=== PATIENT | male | born 1950 | race Caucasian/White ===

== ENCOUNTER 2018-07-19 20:59 | Observation (INO) | payer MEDICARE ==
[~2018-07-19] VITALS: Ht 172.7 cm; Wt 88.0 kg
[~2018-07-19 20:59] MED LIST: LISINOPRIL5 MG PO; NITROGLYCERIN0.4 MG SUBLING; TOPROL XL50 MG PO
[2018-07-19 21:03] VITALS: BP 170/79
[2018-07-19] MEDS ORDERED: FLOMAX0.4 MG PO (21:14)
[2018-07-19] MEDS ORDERED: SIMVASTATIN40 MG PO (21:14)
[2018-07-19] MEDS ORDERED: METFORMIN HCL500 MG PO (21:14)
[2018-07-19] MEDS ORDERED: ASPIR 8181 M1 PO (21:15)
[2018-07-19 21:38] LABS: HEMATOCRIT 44.4 % (42.0-52.0); HEMOGLOBIN 15.2 gm/dL (14.0-18.0); MCH 30.6 pg (26.0-34.0); MCHC 34.3 g/dL (28.0-37.0); MCV 89.1 fL (80.0-100.0); MPV 9.7 fl. (7.2-11.1); NUCLEATED RBCS 0 /100WBC; PLATELET COUNT* 156 thou/uL (150-400); RBC 4.98 mil/uL (4.50-6.00); RDW-CV 13.1 % (10.5-14.5); WBC 12.8 thou/uL (4.0-11.0)
[2018-07-19 21:43] LABS: PROTIME 10.7 Seconds (9.20-11.50)
[2018-07-19 21:49] LABS: ANION GAP 12 mmol/L (7-16); BUN 21 mg/dL (7-18); CALCIUM 9.4 mg/dL (8.5-10.1); CHLORIDE 101 mmol/L (98-107); CO2 27 mmol/L (21-32); CREATININE 1.3 mg/dL (0.6-1.3); GLUCOSE 275 mg/dL (70-99); POTASSIUM 4.4 mmol/L (3.5-5.1); SODIUM 140 mmol/L (136-145); TROPONIN-I LEVEL <0.06 ng/mL (<0.06)
[2018-07-19 21:51] LABS: ALBUMIN 4.1 g/dL (3.4-5.0); ALKALINE PHOSPHATASE 72 U/L (46-116); LIPASE 218 U/L (73-393); NT-PRO BRAIN NAT PEPTIDE 99 pg/mL (<300); SGOT 11 U/L (15-37); SGPT 18 U/L (30-65); TOTAL BILIRUBIN 0.7 mg/dL (<0.1-1.0)
[2018-07-19 22:00] LABS: ABSOLUTE LYMPHOCYTES 0.4 thou/uL (0.8-5.3); ABSOLUTE MONOCYTES 0.5 thou/uL (0.0-1.2); ABSOLUTE NEUTROPHILS 11.9 thou/uL (1.6-8.1); PLATELET ESTIMATE ADEQUATE
[2018-07-19 23:16] LABS: URINE BILIRUBIN NEGATIVE (Negative); URINE BLOOD NEGATIVE (Negative); URINE CLARITY CLEAR; URINE COLOR YELLOW; URINE GLUCOSE-RANDOM 2+ (Negative); URINE KETONES 1+ (Negative); URINE LEUKOCYTES-REFLEX NEGATIVE (Negative); URINE NITRITE-REFLEX NEGATIVE (Negative); URINE PROTEIN NEGATIVE (Negative); URINE SPECIFIC GRAVITY 1.015 (1.005-1.030); URINE UROBILINOGEN 0.2 E.U./dl (0.2-1.0)
[2018-07-20 00:20] VITALS: BP 151/70
[2018-07-20 04:18] VITALS: BP 140/67
[2018-07-20 08:00] VITALS: BP 102/45
[2018-07-20] MEDS ORDERED: PROTONIX40 M1 PO (11:42)
[2018-07-20 12:11] VITALS: BP 120/58
--- NOTE | 2018-07-20 13:26 | EKG ---
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 07/20/18 1326 04 04 Fantasma Lewis MD, FACC /EPI
--- NOTE | 2018-07-20 13:27 | EKG ---
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
[2018-07-20 16:00] VITALS: BP 140/65
--- NOTE | 2018-07-20 16:32 | CARDNUC ---
[place] [address] CARDIAC NUCLEAR IMAGING REPORT Name: ARDEN MARTINEZ [address] [id number] Admission: 07/19/18 Attend Phys: Arden Larsen Discharge: Date of : 50 Date of Service: 07/20/18 1631 Report #: [id number] THIS REPORT FOR: //name// APPROVED REPORT Study performed: 07/20/2018 14:36:38 Exam: Nuclear Stress Test Indication: chest pain Patient Location: In-Patient Room #: 213 Stress Tech: Perri Gonzales Stress Nurse: Fani Mackenzie RN NM Tech:LAURA Rankin Ht: 5 ft 8 in Wt: 190 lbs BSA: 2.00 m2 BMI: 28.88 Medical History Medical History: CP Medications: metoprolol, lisinopril, ASA, simvastatin Allergies: penicillin Cardiac Risk Factors: Age, HTN, DM Previous Cardiac Procedures: PCI, CABG Meds Held (24 hrs): metoprolol Stress Test Details Stress Test: Pharmacologic stress testing performed using 0.4 mg of regadenoson per 5 mL given IV over 10 seconds. HR Resting HR: 83 bpm Max Heart Rate (APMHR): 152 bpm Max HR Achieved: 102 bpm Target HR (85% APMHR): 129 bpm % of APMHR: 67 Recovery HR: 92 bpm BP Resting BP: 127/60 mmHg Max BP: 102/68 mmHg ECG Resting ECG: Sinus Rhythm, LBBB Stress ECG: Sinus Rhythm, LBBB ST Change: None Arrhythmia: [place] [address] CARDIAC NUCLEAR IMAGING REPORT Name: ARDEN MARTINEZ Room: [address]#: [id number] Admission: 07/19/18 Attend Phys: Arden Larsen Discharge: Date of : 50 Date of Service: 07/20/18 1631 Report #: [id number] Recovery ECG: Sinus Rhythm, LBBB Recovery ST Change: None Recovery Arrhythmia: None Clinical Reason for Termination: Completed protocol Stress Symptoms: none The patient tolerated Lexiscan infusion without significant symptoms. Stress ECG Conclusion The baseline 12-lead EKG shows sinus rhythm with left bundle-branch block. EKGs obtained during and post Lexiscan infusion show sinus rhythm with left bundle-branch block. There were no stress-induced arrhythmias. NM EXAM: Myocardial Perfusion REST/STRESS Imaging Protocol: Rest Tc-99m/Stress Tc-99m 1 day Resting Data Rest SPECT myocardial perfusion imaging was performed in supine position 30 minutes following the intravenous injection of 11.0 mCi of Tc-99m Sestamibi. Time of rest injection: 1320 Date: 07/20/2018 The images were gated to evaluate regional wall motion and calculate left ventricular ejection fraction. Administration Route: IV Administration Site: Left AC Pharmacologic Stress Pharmacologic stress test was performed by injecting Regadenoson 0.4 mg IV push followed by the intravenous injection of 34.0 mCi of Tc-99m Sestamibi. Time of stress injection: 1445 Administration Route: IV Administration Site: Left AC Gated Stress SPECT was performed 40 minutes after stress injection. The images were gated to evaluate regional wall motion and calculate left ventricular ejection fraction. Prone imaging was performed. Study Quality Study: Good Artifact: [place] [address] CARDIAC NUCLEAR IMAGING REPORT Name: ARDEN MARTINEZ Room: [address]#: [id number] Admission: 07/19/18 Attend Phys: Arden Larsen Discharge: Date of : 50 Date of Service: 07/20/18 1631 Report #: [id number] Study Data At rest, the left ventricular ejection fraction was 72%.. Post stress, the left ventricular ejection was 58 perfusion images obtained in the supine position at rest and post stress%.. TID = 1.02. Perfusion Show mild photopenia in the basal portion inferior wall that resolves with post stress prone imaging suggesting diaphragmatic attenuation artifact. No other defects were identified. Wall Motion There is a septal wall motion abnormality noted consistent with prior bypass procedure. Global LV systolic function is normal. Nuclear Conclusion ECG Findings: negative for ischemia Clinical Findings: negative for ischemia Nuclear Findings: negative for ischemia Exercise Capacity: not assessed Left Ventricular Function: preserved Risk Study: low Myocardial perfusion images show no defect to suggest infarct or ischemia. Left ventricular systolic function is preserved on gated studies. This is not a high risk study. <Conclusion> The baseline 12-lead EKG shows sinus rhythm with left bundle-branch block. EKGs obtained during and post Lexiscan infusion show sinus rhythm with left bundle-branch block. There were no stress-induced arrhythmias. <ELECTRONICALLY SIGNED> By: Morris Curtis MD, FACC 07/20/18 1631 1631 163 Morris Curtis MD, FACC /INF
[2018-07-20 17:16] VITALS: BP 120/58
--- NOTE | 2018-07-21 12:46 | CON ---
[address] [address] CONSULTATION Name: ARDEN MARTINEZ Room: [address] A[place] Alex#: [id number] Admission: 07/19/18 Attend Phys: Arden Baeza, Discharge: 07/20/18 Date of : 50 Report #: [id number] THIS REPORT FOR: //name// CC: BOYD physician/PCP Maria G Baeza DATE OF SERVICE: 07/20/2018 HISTORY OF PRESENT ILLNESS: The patient a 68-year-old white male who came to the Emergency Room last night complaining of chest pain. The patient apparently initially presented in 2002 with chest pressure here at [place]. He had a heart catheterization and was found to have coronary artery disease. He was actually referred to Cardiovascular surgeon at [facility] who felt his symptoms and degree of coronary artery disease, did not require bypass surgery at that time. The disease did not appear to be readily amenable to stenting. He was treated medically. In 2006, he apparently had an abnormal stress test. He went to [facility] and had repeat heart catheterization. He was found to have progression of coronary artery disease and had triple vessel bypass surgery at [facility] 2006. His last stress test was a couple of years ago. He continues to see a room maid at [facility]. Two years ago he actually had a coronary stent placed in [facility]. He has done well since that time, although he is not very active. Yesterday after lunch, he felt epigastric discomfort, some right shoulder pain that went into his back. This occurred off and on. It was a sharp pain, it was different than his pain from his previous angina. He did have some belching and felt nauseated. He felt short of breath and had dry heaves. He went to the Emergency Room and was admitted. He had 2 loose stools. He denied any associated diaphoresis. He has had no blood in his vomit. Denies any blood in stool. He has had no recent fever or cough. Denied any trauma to his chest. PAST MEDICAL HISTORY: He has had hernia repair. He has a history of prostate cancer treated with radiation therapy. He has history of hypertension, diabetes, hyperlipidemia. MEDICATIONS: Include lisinopril, metoprolol, metformin, simvastatin, Flomax, aspirin. ALLERGIES: He has an allergy to PENICILLIN. FAMILY HISTORY: Positive for heart disease. SOCIAL HISTORY: He is . He and his live in [place]. 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 He is a nonsmoker, [place] [address] CONSULTATION Name: ARDEN MARTINEZ Room: [address] A[place] Alex#: [id number] Admission: 07/19/18 Attend Phys: Arden Baeza, Discharge: 07/20/18 Date of : 50 Report #: [id number] REVIEW OF SYSTEMS: No history of stroke, asthma, peptic ulcer disease, liver disease, kidney disease. He does wear glasses. No skin problems. No psychiatric illness. PHYSICAL EXAMINATION: GENERAL: Revealed an elderly male, appeared in no distress. VITAL SIGNS: He had a blood pressure of 140/70, pulse 70, he is afebrile. HEENT: He is anicteric. Conjunctivae pink. Mucous members moist. NECK: Veins do not appear distended. No carotid bruits. Neck supple. CHEST: Clear to auscultation. CARDIOVASCULAR: Regular rate and rhythm. ABDOMEN: Soft. EXTREMITIES: Had no edema. Dorsalis pedis pulse cannot be palpated. SKIN: Cool and dry. NEUROLOGIC: Nonfocal. LYMPH: No adenopathy. MUSCULOSKELETAL: No joint effusion. DIAGNOSTIC DATA: His ECG last night showed a sinus rhythm with a left bundle branch block. His workup last night sodium 140, BUN 21, creatinine 1.3, glucose is 275. His troponins have all 0.06. His D-dimer 0.25. White blood cell count 12.8, hemoglobin 15.2, hematocrit 44.4. He had portable chest x-ray done in the Emergency Room last night that showed normal heart size, clear lung olivera, other than some minimal atelectasis. He actually had a CT scan of the chest, abdomen and pelvis with contrast that showed no pulmonary embolus, no aortic dissection with clear lung olivera, previous sternotomy, calcified gallstones were noted. No biliary obstruction. Pancreas unremarkable. IMPRESSION AND RECOMMENDATIONS: 1. Epigastric pain. Suspect gastrointestinal. 2. History of stent. Recommend Lexiscan Cardiolite since the patient is on a beta nicolasa. 3. Nausea and vomiting. Possible cholecystitis. 4. Hypertension. The patient on an JOSE MARIA inhibitor and beta nicolasa. 5. Diabetes. 6. Hyperlipidemia. The patient is on a statin drug. 7. History of prostate cancer. <ELECTRONICALLY SIGNED> By: Fantasma Lewis MD, FACC 07/21/18 1246 0934 01Fantasma Lewis MD, FACC /nt
== END 2018-07-20 18:25 | disposition home or self-care (01) ==
LOC: M.ERS 20:59 → M.2W 23:24 → M.TBA-ER 23:24 → M.2W 23:24
PROVIDERS: Emergency Medicine; ADMIT Family Medicine
DX: I25.10 Atherosclerotic heart disease of native coronary artery without angina pectoris (principal); K80.20 Calculus of gallbladder without cholecystitis without obstruction; N18.3 Chronic kidney disease, stage 3 (moderate); E11.22 Type 2 diabetes mellitus with diabetic chronic kidney disease; R11.2 Nausea with vomiting, unspecified; Z95.1 Presence of aortocoronary bypass graft; Z85.46 Personal history of malignant neoplasm of prostate; Z88.0 Allergy status to penicillin; Z79.82 Long term (current) use of aspirin; Z79.899 Other long term (current) drug therapy; Z98.890 Other specified postprocedural states; Z95.5 Presence of coronary angioplasty implant and graft; Z85.828 Personal history of other malignant neoplasm of skin

== ENCOUNTER 2019-11-21 03:47 | Inpatient (IN) | payer MEDICARE ==
[2019-11-21] VITALS (15 sets, daily range): BP systolic 103–141; BP diastolic 52–91
[~2019-11-21] VITALS: Ht 172.7 cm; Wt 88.1 kg
[~2019-11-21 03:47] MED LIST changes: +FLOMAX0.4 MG PO; +LO-DOSE ASPIRIN81 M1 PO; +METFORMIN HCL500 MG PO; +PROTONIX40 M1 PO; +SIMVASTATIN40 MG PO
[2019-11-21 04:32] LABS: HEMATOCRIT 46.7 % (42.0-52.0); HEMOGLOBIN 15.7 gm/dL (14.0-18.0); MCH 30.6 pg (26.0-34.0); MCHC 33.7 g/dL (28.0-37.0); MCV 90.9 fL (80.0-100.0); MPV 9.3 fl. (7.2-11.1); NUCLEATED RBCS 0 /100WBC; PLATELET COUNT* 139 thou/uL (150-400); RBC 5.13 mil/uL (4.50-6.00); RDW-CV 13.6 % (10.5-14.5); WBC 12.4 thou/uL (4.0-11.0)
[2019-11-21 04:42] LABS: CREATININE 1.4 mg/dL (0.6-1.3); POTASSIUM 4.6 mmol/L (3.5-5.1)
[2019-11-21 04:45] LABS: APTT 26.6 Seconds (25.0-31.3); INR 1.1
[2019-11-21 04:47] LABS: ALBUMIN 4.2 g/dL (3.4-5.0); TOTAL BILIRUBIN 0.5 mg/dL (<0.1-1.0); TOTAL PROTEIN 7.1 g/dL (6.4-8.2)
[2019-11-21] MEDS ORDERED: GLIMEPIRIDE1 MG PO (05:13)
[2019-11-21] MEDS ORDERED: PROPECIA1 MG PO (05:14)
[2019-11-21] MEDS ORDERED: ISOSORBIDE MONO30 M1 PO (05:14)
[2019-11-21] MEDS ORDERED: NAPROSYN500 M1 PO (05:16)
[2019-11-21 06:12] LABS: ABSOLUTE LYMPHOCYTES 0.6 thou/uL (0.8-5.3); ABSOLUTE MONOCYTES 0.2 thou/uL (0.0-1.2); ABSOLUTE NEUTROPHILS 11.5 thou/uL (1.6-8.1); PLATELET ESTIMATE DECREASED
[2019-11-21 07:33] LABS: URINE BLOOD NEGATIVE (Negative); URINE CLARITY CLEAR; URINE COLOR YELLOW; URINE GLUCOSE-RANDOM 3+ (Negative); URINE KETONES TRACE (Negative); URINE LEUKOCYTES-REFLEX NEGATIVE (Negative); URINE NITRITE-REFLEX NEGATIVE (Negative); URINE PROTEIN NEGATIVE (Negative); URINE SPECIFIC GRAVITY >= 1.030 (1.005-1.030); URINE UROBILINOGEN 0.2 E.U./dl (0.2-1.0)
[2019-11-21 07:35] LABS: URINE BILIRUBIN 1+ (Negative)
[2019-11-21 07:36] LABS: ICTOTEST (BILI CONFIRMATORY) Negative (Negative)
[2019-11-21 10:26] LABS: CHOLESTEROL 96 mg/dL (<200); HDL CHOLESTEROL 46 mg/dL (>40); LDL CHOLESTEROL 41 mg/dL (<100); SERUM ASSESSMENT Clear; TC:HDL 2.1 Ratio (Not establshd); TRIGLYCERIDE 48 mg/dL (<150); VLDL 10 mg/dL (<40)
--- NOTE | 2019-11-21 11:38 | EKG ---
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 : 1950 Requested By: Lacy Siegel Order Number: [id number] MD: Morris Curtis Measurements Intervals Kevin Rate: 139 P: TN: QRS: -3 QRSD: 153 T: 145 QT: 351 QTc: 534 Interpretive Statements Atrial fibrillation IVCD, consider atypical LBBB Baseline wander in lead(s) V1,V2 Compared to ECG 07/19/2018 21:34:50 Sinus rhythm no longer present Electronically Signed On 11-21-2019 11:38:46 CDT by Morris Curtis [email or web address] <ELECTRONICALLY SIGNED> By: Morris Curtis MD, FACC 11/21/19 1138 0356 0356 Morris Curtis MD, FAC /EPI
--- NOTE | 2019-11-21 14:23 | CON ---
[address] [address] CONSULTATION Name: ADEEL MARTINEZ Room: [address] IN M.R.#: [id number] Admission: 11/21/19 Attend Phys: Dmitry Amato MD Discharge: Date of : 50 Report #: [id number] THIS REPORT FOR: //name// cc: BOYD Kc family physician/PCP BOYD Kc family physician/PCP ~ THIS REPORT FOR: //name// CC: Dmitry NIX physician/PCP DATE OF SERVICE: 11/21/2019 INDICATION: Non-ST elevation myocardial infarction and atrial fibrillation with rapid ventricular response rate. HISTORY OF PRESENT ILLNESS: The patient is a very pleasant 69-year-old gentleman with history of 3-vessel coronary artery bypass grafting in 2006 in the setting of progressive/unstable angina. Subsequent to that, he has had percutaneous coronary intervention on 2 separate occasions, most recently approximately 10 months ago at outside hospital. He remains on dual antiplatelet therapy at this time. The patient presented to the hospital with complaints of chest pain that had been intermittent since 11:30 last night. At first, he felt this may be related to some food intake. However, the pain then gradually progressed and became focused in the sternal area and left shoulder. He had some radiation to the jaw. He presented to the hospital for further evaluation. EKG showed atrial fibrillation with rapid ventricular response rate. There was a right bundle branch block without acute ST segment changes. Initial troponin on presentation was less than 0.06 and has subsequently risen to 1.65. At the time of interview, the patient is pain free. He was placed on a diltiazem drip and has subsequently converted to sinus rhythm. He is without other complaint at this time. PAST MEDICAL HISTORY: 1. Coronary artery disease with 3-vessel coronary artery bypass grafting in 2006 and percutaneous coronary intervention on 2 subsequent occasions. 2. Hypertension. 3. Dyslipidemia. 4. Type 2 diabetes mellitus. 5. Prostate cancer. 6. Bilateral inguinal hernia repair. 7. Paroxysmal atrial fibrillation at the time of his bypass surgery. ALLERGIES: [place] [address] CONSULTATION Name: ADEEL MARTINEZ Room: [address]#: [id number] Admission: 11/21/19 Attend Phys: Dmitry Amato MD Discharge: Date of : 50 Report #: [id number] HOME MEDICATIONS: Aspirin 81 mg daily, Propecia 1 mg daily, glimepiride 1 mg daily, isosorbide mononitrate ER 30 mg daily, lisinopril 5 mg daily, metformin 1000 mg b.i.d., metoprolol succinate 50 mg daily, Naprosyn 500 mg daily, Nitrostat sublingual p.r.n., Protonix 40 mg daily, simvastatin 40 mg every evening, Flomax 0.4 mg daily. SOCIAL HISTORY: The patient is . He lives here in [place]. He is a nonsmoker. Drinks alcohol occasionally. FAMILY HISTORY: Noncontributory. REVIEW OF SYSTEMS: As per HPI, otherwise, unremarkable. PHYSICAL EXAMINATION: VITAL SIGNS: Stable. Blood pressure 109/66, pulse is now 63 and regular. GENERAL: This is a pleasant gentleman, in no distress. Mood and affect appropriate. HEENT: Extraocular muscles intact. Mucous membranes are moist. NECK: Shows no jugular venous distention. There are no carotid bruits. CHEST: Reveals clear lung olivera without wheezes or rales. CARDIAC: Reveals a regular rhythm without gallop or murmur. ABDOMEN: Reveals normal bowel sounds. The abdomen is soft, nontender. EXTREMITIES: Shows no edema. SKIN: Dry. LABORATORY DATA: Reviewed. Sodium 136, potassium 4.6, chloride 101, bicarbonate 27, BUN 20, creatinine 1.4, serum glucose 318. Troponin now 1.65. NT-proBNP 662. Lipid profile pending. Coags within normal limits. White blood cell count 12.4, hemoglobin 15.7, platelet count of 139,000. Chest x-ray shows sternotomy wires. No acute changes noted. IMPRESSION AND RECOMMENDATIONS: 1. Non-ST elevation myocardial infarction. We will proceed with coronary angiography and possible intervention pending those results. He is on dual antiplatelet therapy at this time. We will continue this presently. He has received aspirin in the Emergency Room. He is presently pain free. 2. Atrial fibrillation with rapid ventricular response rate. The patient has converted to sinus rhythm on diltiazem alone. His KELLY score is 2 based on hypertension and diabetes. Consider anticoagulant therapy after intervention. 3. Hypertension. Blood pressure adequately controlled on current regimen. 4. Dyslipidemia, presently on simvastatin. Fasting lipid profile is pending. [address] [address] CONSULTATION Name: ADEEL MARTINEZ Room: [address] IN M.R.#: [id number] Admission: 11/21/19 Attend Phys: Dmitry Amato MD Discharge: Date of : 50 Report #: [id number] 5. Chronic renal insufficiency, appears stable at this time. 6. Type 2 diabetes mellitus per hospitalist. <ELECTRONICALLY SIGNED> By: Morris Curtis MD, FACC 11/21/19 1423 0953 [id number] Curtis MD, FACC /nt
--- NOTE | 2019-11-21 15:42 | EKG ---
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1950 Requested By: Fantasma Lewis Order Number: [id number] Pierre MD: Morris Curtis Measurements Intervals [place] Rate: 63 P: 58 OR: 174 QRS: 21 QRSD: 154 T: 159 QT: 457 QTc: 468 Interpretive Statements Sinus rhythm Left bundle branch block compared to ECG 11/21/2019 03:56:07 Atrial fibrillation no longer present Electronically Signed On 11-21-2019 15:42:39 CDT by Morris Curtis [email or web address] <ELECTRONICALLY SIGNED> By: Morris Curtis MD, FACC 11/21/19 1542 1342 1342 Morris Curtis MD, [facility] /EPI
--- NOTE | 2019-11-21 15:46 | NUR ---
PT UP FROM 1 STENT DONE AT 1250 UP AT [address] HUGHES PT RECEIVED NORCO FOR BACK PAIN FROM LAYING ON THE TABLE PT DID URINATE INSTRUCTED NOT TO MOVE RLE D/T GROIN SITE PULSES 1+ VITAL SIGNS WNL AT BEDSIDE CALL LIGHT IN REACH
--- NOTE | 2019-11-21 16:09 | 2DMMODE ---
[place] [address] 2 D/M-MODE ECHOCARDIOGRAM Name: ADEEL MARTINEZ Room: [address] IN [facility]#: [id number] Admission: 11/21/19 Attend Phys: Dmitry Amato, Discharge: Date of : 50 Date of Service: 11/21/19 1608 Report #: [id number] THIS REPORT FOR: cc: FAM - No family physician/PCP FAM - No family physician/PCP Morris Curtis MD [facility] ~ APPROVED REPORT Study performed: 11/21/2019 14:40:01 EXAM: Comprehensive 2D, Doppler, and color-flow Echocardiogram Patient Location: In-Patient Room #: 224 Status: routine BSA: 2.00 HR: 66 bpm BP: 109/66 mmHg Rhythm: NSR Other Information Study Quality: Good Indications Acute SC Chest Pain 2D Dimensions IVSd: 10.94 (7-11mm) LVOT Diam: 20.47 (18-24mm) LVDd: 54.30 mm PWd: 10.48 (7-11mm) Ascending Ao: 32.41 (22-36mm) LVDs: 40.59 (25-40mm) Aortic Root: 36.87 mm Volumes Left Atrial Volume (Systole) LA ESV Index: 26.40 mL/m2 Aortic Valve AoV Peak Mode.: 0.92 m/s AO Peak Gr.: 3.36 mmHg LVOT Max P.08 mmHg AO Mean Gr.: 2.19 mmHg LVOT Mean P.14 mmHg LVOT Max V: 0.72 m/s AO V2 VTI: 18.34 cm LVOT Mean V: 0.50 m/s SAMIA (VTI): 3.05 cm2 LVOT V1 VTI: 17.01 [place] [address] 2 D/M-MODE ECHOCARDIOGRAM Name: ADEEL MARTINEZ Room: [address] IN [facility]#: [id number] Admission: 11/21/19 Attend Phys: Dmitry Amato, Discharge: Date of : 50 Date of Service: 11/21/19 1608 Report #: [id number] Mitral Valve E/A Ratio: 1.49 MV Decel. Time: 147.11 ms MV E Max Mode.: 0.98 m/s MV PHT: 42.66 ms MVA (PHT): 5.16 cm2 TDI E/Lateral E': 6.13 E/Medial E': 7.00 Medial E' Mode.: 0.14 m/s Lateral E' Mode.: 0.16 m/s Pulmonary Valve PV Peak Mode.: 0.97 m/s PV Peak Gr.: 3.80 mmHg Left Ventricle The left ventricle is normal size. There is normal LV segmental wall motion. There is normal left ventricular wall thickness. Left ventricular systolic function is normal. LVEF is 50-55%. The left ventricular diastolic function is normal. Right Ventricle The right ventricle is normal size. The right ventricular systolic function is normal. Atria The left atrium size is normal. The right atrium size is normal. Aortic Valve Mild aortic valve sclerosis. No aortic regurgitation is present. There is no aortic valvular stenosis. Mitral Valve The mitral valve is normal in structure. Mild mitral regurgitation. No evidence of mitral valve stenosis. Tricuspid Valve The tricuspid valve is normal in structure. Unable to assess PA pressure. Trace tricuspid regurgitation. Pulmonic Valve The pulmonary valve is normal in structure. [place] [address] 2 D/M-MODE ECHOCARDIOGRAM Name: ADEEL MARTINEZ Room: [address]#: [id number] Admission: 11/21/19 Attend Phys: Dmitry Amato, Discharge: Date of : 50 Date of Service: 11/21/19 1608 Report #: [id number] Great Vessels The aortic root is normal in size. IVC is normal in size and collapses >50% with inspiration. Pericardium There is no pericardial effusion. <Conclusion> The left ventricle is normal size. There is normal left ventricular wall thickness. Left ventricular systolic function is normal. LVEF is 50-55%. The left ventricular diastolic function is normal. Mild mitral regurgitation. Trace tricuspid regurgitation. IVC is normal in size and collapses >50% with inspiration. <ELECTRONICALLY SIGNED> By: Morris Curtis MD, FACC 11/21/19 1608 1608 1608 Morris Curtis MD, FACC /INF
[2019-11-22] VITALS (7 sets, daily range): BP systolic 112–157; BP diastolic 62–80
[2019-11-22 05:38] LABS: ABSOLUTE EOSINOPHILS 0.1 thou/uL (0.0-0.7); ABSOLUTE LYMPHOCYTES 1.2 thou/uL (0.8-5.3); ABSOLUTE MONOCYTES 0.7 thou/uL (0.0-1.2); ABSOLUTE NEUTROPHILS 6.1 thou/uL (1.6-8.1); BASOPHILS 0.4 %; EOSINOPHILS 1.1 %; HEMATOCRIT 40.9 % (42.0-52.0); HEMOGLOBIN 14.4 gm/dL (14.0-18.0); LYMPHOCYTES 14.4 %; MCH 30.7 pg (26.0-34.0); MCHC 35.1 g/dL (28.0-37.0); MCV 87.6 fL (80.0-100.0); MONOCYTES 8.7 %; MPV 8.9 fl. (7.2-11.1); NUCLEATED RBCS 0 /100WBC; PLATELET COUNT* 132 thou/uL (150-400); POLYS 75.4 %; RBC 4.67 mil/uL (4.50-6.00); RDW-CV 13.4 % (10.5-14.5)
--- NOTE | 2019-11-22 05:54 | NUR ---
ASSUMED PT CARE AT 1915. NURSING ASSESSMENT COMPLETED AT START OF SHIFT. SR WITH BBB ON PHYSICIAN ASST. PT VOICED NO CONCERNS/NO PAIN THIS SHIFT. RIGHT GROIN DRESSING CLEAN,DRY,INTACT. HOURLY ROUNDING COMPLETED. CALL LIGHT WITHIN REACH.
[2019-11-22 06:28] LABS: CALCIUM 8.6 mg/dL (8.5-10.1); CREATININE 1.1 mg/dL (0.6-1.3); POTASSIUM 4.3 mmol/L (3.5-5.1)
[2019-11-22] MEDS ORDERED: CLOPIDOGREL75 MG PO (09:02)
--- NOTE | 2019-11-22 09:14 | NUR ---
CM SPOKE TO THE PT TO DISCUSS HIS HOME SITUATION, DISCHARGE PLANNING, AND TO INFORM OF THE ROLE OF CM. PT A&O, INEPENDENT WITH ADL'S, ACTIVE AND WORKS. PT RESIDES AT HOME WIH SPOUSE. PT USES 0 DME. PT HAS 0 HX 9OF HH OR SNF, AND INFORMS THAT THE PHYSICIAN SAID THAT HE WILL D/C TODAY. RN IN-CHARGE OF PT CONFIRMS THIS. PT TO D/C TODAY HOME LEVEL OF CARE WITH NO NEEDS. CM WILL REMAIN AVIALABLE TO ASSIST AND FOLLOW NEEDED.
--- NOTE | 2019-11-22 09:51 | NUR ---
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
--- NOTE | 2019-11-22 16:45 | EKG ---
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
[2019-11-23 00:21] VITALS: BP 109/64
[2019-11-23 04:44] VITALS: BP 114/50
--- NOTE | 2019-11-23 06:38 | NUR ---
ASSUMED PT CARE AT 1915. NURSING ASSESSMENT COMPLETED, PT VOICED NO CONCERNS THIS SHIFT.SR WITH BBB ON MATRIX PLATER. DENIES CHEST PAIN. HOURLY ROUNDING COMPLETED. CALL LIGHT WITHIN REACH.
[2019-11-23 07:51] VITALS: BP 128/72
--- NOTE | 2019-11-23 09:32 | NUR ---
ASSUMED CARE OF PT THIS AM AROUND 07- EXECUTIVE ASSOCIATE IN PLACE ORDERED, TRACING SR WITH BBB- UPON ASSESSMENT PT NOTED TO BE RESTING IN BED SIDE CHAIR- PT A&O X4- CONT OF BOWEL AND BLADDER- UP AD-REJI IN ROOM, STEADY GAIT NOTED- LCTA, DIMINISHED IN BASES- VSS, O2 SAT 96% ON RA- ABD SOFT/ROUND/NON-TENDER, BS X4 QUADS- LAST BM REPORTED THIS AM- IV NOTED TO LEFT FA INTACT AND SL- RIGHT DROIN NOTED WITH C/D/I DRESSING, NO HEMATOMA- PT DENIES ANY C/O PAIN/DISCOMFORT AT THIS TIME- EXPRESSES WISHES TO BE D/C'D THIS AM- CALL LIGHT AND PERSONAL BELONGINGS WITH IN REACH- ALL NEEDS MET AT THIS TIME-WCTM
[2019-11-23 12:21] VITALS: BP 127/69
--- NOTE | 2019-11-28 17:54 | CARD ---
[address] [address] CARDIAC CATH REPORT Name: ADEEL MARTINEZ Room: [address] IN [facility]#: [id number] Admission: 11/21/19 Attend Phys: Dmitry Amato MD Discharge: 11/23/19 Date of : 50 Report #: [id number] THIS REPORT FOR: //name// cc: BOYD Jimenez No family physician/PCP BOYD - No family physician/PCP ~ APPROVED REPORT Study performed: 11/21/2019 10:41:46 Patient Details Patient Status: In-Patient Room #: The patient is a 69 year-old male Event Personnel Adela Finney Monitor, Philippe Vargas RN RN, Morris Curtis Interlocking Tower Operator, Leandra Fleming RTR Scrub, Fantasma Lewis Knotting Machine Operator Procedures Performed Left Heart Cath w/or w/o Coronaries [id number] [facility] w/wo Plasty Single CIRC [id number] Hemostasis w/ Angioseal Indication Abnormal ECG, Non-STEMI , Atrial fibrillation, Chest pain Risk Factors Hypercholesterolemia, Coronary Artery DiseaseHypertension Previous Procedures/Diagnoses Previous CABGPrevious PCI Admission/Lab Medications/Medications given during procedure Heparin Unfract., Lidocaine Subcut 10 ml, Midazolam (Versed) IV 1 mg, Fentanyl IV 25 mcg, Heparin IV 7000 units, Heparin IV 3000 units, Heparin IV 1000 units Procedure Narrative The patient was brought electively to the Cardiac Catheterization Laboratory and was prepped and draped in a sterile manner. The right femoral was infiltrated with 2% Lidocaine subcutaneous anesthesia. A 6Fr [place] sheath was inserted into the right femoral artery. Coronary angiography was performed using coronary diagnostic catheters. The right coronary system was accessed and visualized with a Diagnostic JR4 6Fr catheter. The left coronary system was accessed and visualized with a Diagnostic JL4 6[place] [address] CARDIAC CATH REPORT Name: ADEEL MARTINEZ Room: [address]#: [id number] Admission: 11/21/19 Attend Phys: Dmitry Amato MD Discharge: 11/23/19 Date of : 50 Report #: [id number] ventricular/Aortic Valve gradient assessed via catheter pullback. Closure device was deployed with a 6 Fr Angioseal. The patient tolerated the procedure well and there were no complications associated with the procedure. There was no hematoma. diagnostic catheters used to perform angiograms of the SVG's and ZHAO graft. Intraoperative Conscious Sedation Sedation start time: 1156 Case end Time: 1252 Fentanyl 25 mcg Versed 1 mg Fluoro Time: 7.4 minutes Dose: DAP [id number] cGycm2 2264.86 mGy Contrast Type and Amount: Omnipaque 220 ml Coronary Angiography The patient's coronary anatomy is right dominant. [place] Artery Percent Stenosis A ZHAO graft to the distal LAD is widely patent. A saphenous vein graft to the right coronary artery is widely patent. A saphenous vein graft to the diagonal branch is widely patent. Diagnostic Cath Left Main The left main coronary artery is normal. LAD The left anterior descending coronary artery is totally occluded proximally. Circumflex The circumflex coronary artery has a 90% stenosis proximally. Right Coronary The right coronary artery is totally occluded proximally. Left Ventriculography Left Ventriculography was not performed. Hemodynamics The aortic pressure is 121/49 mmHg with a mean of 70 mmHg. The left ventricular pressure is 89/10 mmHg with a mean of mmHg. The left ventricular end diastolic pressure is 17 mmHg. There was no gradient across the aortic valve upon pullback. Pullback from the left ventricle to the aorta revealed no gradient [place] [address] CARDIAC CATH REPORT Name: ADEEL MARTINEZ Room: [address]#: [id number] Admission: 11/21/19 Attend Phys: Dmitry Amato MD Discharge: 11/23/19 Date of : 50 Report #: [id number] PCI Technique Lesion Anticoagulation was achieved with Heparin. Patient was preloaded with Plavix. Percutaneous coronary intervention was performed on the proximal circumflex artery segment. The lesion stenosis prior to intervention was 90% with BIRDIE 3 flow. A 6FR XB 3.5 100CM Guide Catheter was used to engage the Left ostium. A IG: BMW 190cm Interventional Guidewire was used to cross the lesion. BALLOON DILATION A Balloon catheter Trek RX 2.5 X 12 was inserted and inflated up to 12.00atm for 16seconds. Repeat angiography revealed the following post-dilatation results: 40% stenosis. STENT DEPLOYMENT A drug-eluting stent [place] RX Stent 2.85B61pn was inserted and inflated up to 11.00atm for 15seconds. Repeat angiography revealed the following post-stent deployment results: 0% stenosis. Additional Inflation: 14.00atm for 15seconds. Additional Inflation: 14.00atm for 12seconds. Final angiography reveals 0 % stenosis with BIRDIE 3 flow. Conclusion 1. 90% ostial stenosis of the circumflex artery just proximal to a stent in the proximal circumflex artery. 2. successful placement of a drug eluting stent in the ostium of the circumflex that extended proximally into the left main artery. Recommendations Cardiac Rehabilitation Referral Aggressive Medical Therapy Medications Administered Clopidogrel <ELECTRONICALLY SIGNED> By: Morris Curtis MD, FACC 11/28/191753 53 175[facility] Curtis MD, FACC /INF
== END 2019-11-23 13:02 | disposition home or self-care (01) | DRG 246 ==
LOC: M.ERS 03:47 → M.2W 06:44 → M.TBA-ER 06:44 → M.2W 08:06
PROVIDERS: Emergency Medicine; Internal Medicine Cardiovascular Disease; ADMIT Internal Medicine; ATTEND Internal Medicine
PROC: 027034Z Dilation of Coronary Artery, One Artery with Drug-eluting Intraluminal Device, Percutaneous Approach (ICD-10-PCS; principal; 2019-11-21)
PROC: B2131ZZ Fluoroscopy of Multiple Coronary Artery Bypass Grafts using Low Osmolar Contrast (ICD-10-PCS; principal; 2019-11-21)
PROC: B2111ZZ Fluoroscopy of Multiple Coronary Arteries using Low Osmolar Contrast (ICD-10-PCS; principal; 2019-11-21)
PROC: 4A023N7 Measurement of Cardiac Sampling and Pressure, Left Heart, Percutaneous Approach (ICD-10-PCS; principal; 2019-11-21)
DX: I21.4 Non-ST elevation (NSTEMI) myocardial infarction (principal); N17.0 Acute kidney failure with tubular necrosis; D68.69 Other thrombophilia; I25.110 Atherosclerotic heart disease of native coronary artery with unstable angina pectoris; Z95.1 Presence of aortocoronary bypass graft; E78.5 Hyperlipidemia, unspecified; I48.0 Paroxysmal atrial fibrillation; E11.22 Type 2 diabetes mellitus with diabetic chronic kidney disease; Z20.828 Contact with and (suspected) exposure to other viral communicable diseases; I12.9 Hypertensive chronic kidney disease with stage 1 through stage 4 chronic kidney disease, or unspecified chronic kidney disease; N18.2 Chronic kidney disease, stage 2 (mild); Z95.5 Presence of coronary angioplasty implant and graft; Z85.46 Personal history of malignant neoplasm of prostate; Z79.899 Other long term (current) drug therapy; Z79.82 Long term (current) use of aspirin; Z88.0 Allergy status to penicillin

== ENCOUNTER 2020-09-11 21:22 | Emergency (ER) | payer OTHER ==
[~2020-09-11] VITALS: Ht 172.7 cm; Wt 87.5 kg
[~2020-09-11 21:22] MED LIST changes: +CLOPIDOGREL75 MG PO; +GLIMEPIRIDE1 MG PO; +ISOSORBIDE MONO30 M1 PO; +NAPROSYN500 M1 PO; +PROPECIA1 MG PO
[2020-09-11 22:33] LABS: URINE BLOOD 3+ (Negative); URINE CLARITY CLOUDY; URINE COLOR RED; URINE GLUCOSE-RANDOM 2+ (Negative); URINE KETONES NEGATIVE (Negative); URINE LEUKOCYTES-REFLEX TRACE (Negative); URINE PROTEIN 3+ (Negative); URINE SPECIFIC GRAVITY 1.025 (1.005-1.030)
[2020-09-11 22:35] LABS: URINE BILIRUBIN 2+ (Negative); URINE NITRITE-REFLEX POSITIVE (Negative)
[2020-09-11 22:36] LABS: ICTOTEST (BILI CONFIRMATORY) Negative (Negative)
[2020-09-11 22:38] LABS: MUCUS None Seen strn/LPF (None Seen); SQUAMOUS 0-3 Few /LPF (0-3); URINE RBC >20 Many /HPF (0-2); YEAST-REFLEX Present (None Seen)
[2020-09-11 22:39] LABS: BACTERIA-REFLEX 1-9 Few /HPF (None Seen); CASTS None Seen /LPF (None Seen); CRYSTALS None Seen /LPF (None Seen)
[2020-09-11 22:41] LABS: URINE WBC-REFLEX None Seen /HPF (0-5)
[2020-09-11 22:49] LABS: HEMATOCRIT 42.6 % (42.0-52.0); HEMOGLOBIN 14.9 gm/dL (14.0-18.0); MCH 30.8 pg (26.0-34.0); MCHC 34.9 g/dL (28.0-37.0); MCV 88.2 fL (80.0-100.0); NUCLEATED RBCS 0 /100WBC; PLATELET COUNT* 165 thou/uL (150-400); RBC 4.83 mil/uL (4.50-6.00); RDW-CV 13.3 % (10.5-14.5); WBC 15.9 thou/uL (4.0-11.0)
[2020-09-11 22:58] LABS: CALCIUM 9.5 mg/dL (8.5-10.1); CREATININE 1.2 mg/dL (0.6-1.3); POTASSIUM 4.4 mmol/L (3.5-5.1)
[2020-09-11 23:27] LABS: ABSOLUTE EOSINOPHILS 0.2 thou/uL (0.0-0.7); ABSOLUTE LYMPHOCYTES 0.5 thou/uL (0.8-5.3); ABSOLUTE MONOCYTES 0.2 thou/uL (0.0-1.2); ABSOLUTE NEUTROPHILS 15.1 thou/uL (1.6-8.1); PLATELET ESTIMATE ADEQUATE
[2020-09-12] MEDS ORDERED: MACROBID 100 M100 M2 PO (00:46)
[2020-09-12 00:55] VITALS: BP 125/60
== END 2020-09-12 00:56 | disposition home or self-care (01) ==
LOC: M.ERS 21:22
PROVIDERS: Emergency Medicine
DX: N39.0 Urinary tract infection, site not specified (principal); Z88.0 Allergy status to penicillin; Z79.899 Other long term (current) drug therapy; Z79.82 Long term (current) use of aspirin; Z95.5 Presence of coronary angioplasty implant and graft; Z98.890 Other specified postprocedural states